=== PATIENT | male | born 1995 ===

== ENCOUNTER → 2017-01-08 | Outpatient (CLI) | payer SELFPAY ==
--- NOTE | 2017-01-08 13:54 | CR ---
EXAMINATION: Right ankle HISTORY: Pain COMPARISON: None TECHNIQUE: 3 views FINDINGS/IMPRESSION: There is a tiny lucency noted through the medial malleolus distally, this could represent a small nondisplaced fracture, however is only noted on the external cortex. Otherwise th ere is no acute osseous abnormality, dislocation, or fracture identified. Moderate soft tissue swell ing is noted adjacent to the right ankle, most notable anteriorly.
== END ==
LOC: MW.CHORTHO 08:04
PROVIDERS: ATTEND Physician Assistant
DX: M25.571 Pain in right ankle and joints of right foot (principal); R22.41 Localized swelling, mass and lump, right lower limb
CPT/HCPCS: 73610-26-RT; 73610-RT